=== PATIENT | male | born 1990 | race Caucasian/White ===

== ENCOUNTER 2020-01-17 22:34 | Emergency (ER) | payer SELFPAY ==
[~2020-01-17] VITALS: Ht 175.3 cm; Wt 78.1 kg
[2020-01-17] MEDS ORDERED: LORTAB 1010 MG PO (23:02)
[2020-01-17] MEDS ORDERED: AMOXICILLIN500 MG PO (23:02)
[2020-01-17 23:10] VITALS: BP 123/81
== END 2020-01-17 23:10 | disposition home or self-care (01) | DRG 159 ==
LOC: ED 22:34
DX: K04.7 Periapical abscess without sinus (principal)